=== PATIENT | female | born 1980 | race Caucasian/White ===

== ENCOUNTER 2017-03-05 02:58 | Emergency (ER) | payer OTHER ==
[~2017-03-05] VITALS: Ht 165.1 cm; Wt 58.1 kg
[~2017-03-05 02:58] MED LIST: ADVIL200 MG PO
[2017-03-05 03:04] VITALS: BP 110/83
[2017-03-05 03:23] LABS: HEMATOCRIT 39.7 % (36.0-46.0); MCH 31.1 PG (29.0-34.0); MCHC 33.2 G/DL (30.0-36.0); MCV 93.6 FL (83-99); MEAN PLAT.VOLUME 9.9 uM^3 (9.5-12.4); PLATELET COUNT 280 K/uL (156-360); RBC DIS.WIDTH-CV 12.5 % (11.8-14.6); RBC DIS.WIDTH-SD 42.9 % (39-53); RED BLOOD COUNT 4.24 M/uL (3.80-5.20); WHITE BLOOD COUNT 9.4 K/uL (4.1-10.2)
[2017-03-05 03:31] LABS: CHLORIDE 105 mEq/L (99-109); POTASSIUM 4.2 mEq/L (3.7-5.4); SODIUM 140 mEq/L (136-147)
[2017-03-05 03:33] LABS: GLUCOSE 109 mg/dL (70-99)
[2017-03-05 03:35] LABS: ANION GAP 11 MEQ/L (2-14)
[2017-03-05 03:37] LABS: GFR ESTIMATE (CALCULATED) > 59 mL/min/
[2017-03-05 03:38] LABS: UREA NITROGEN (BUN) 9 mg/dL (9-23)
[2017-03-05] MEDS ORDERED: ZOFRAN8 MG PO (03:53)
== END 2017-03-05 05:55 | disposition home or self-care (01) ==
LOC: EME 02:58
PROVIDERS: Emergency Medicine
DX: R11.2 Nausea with vomiting, unspecified (principal); F10.129 Alcohol abuse with intoxication, unspecified; R00.0 Tachycardia, unspecified
CPT/HCPCS: 80048; 81003; 85027; 99281; 99282